=== PATIENT | female | born 1995 | race Caucasian/White ===

== ENCOUNTER → 2019-07-31 10:06 | Outpatient (BNVA) | payer BC, SELFPAY | PROVIDERS: Visit Provider Obstetrics & Gynecology | DX: Z32.01 Encounter for pregnancy test, result positive (principal) | CPT/HCPCS: 81025 ==

== ENCOUNTER 2019-08-29 07:06 | Outpatient (CLI) | payer BC, SELFPAY ==
--- NOTE | 2019-08-29 | US_ITS ---
WS: [id number] RENAL ULTRASOUND Urinary bladder ultrasound HISTORY: PKD COMPARISON: None available. TECHNIQUE: 2-D and color Doppler imaging of the kidney submitted. Right kidney: 11.8 cm x 5.3 cm x 5.3 cm. Kidneys top normal size. Several cysts are associated with the kidney. Largest from the inferior kidn ey measures 4.5 x 2.9 x 4.2 cm. There are multiple smaller cysts. No hydronephrosis. Left kidney: 11.8 cm x 4.5 cm x 5.4 cm. Normal size LEFT kidney with multiple small cysts. The largest cyst in the mid kidney measures 1.4 x 1.0 x 1.4 cm. Aorta: Normal. Urinary Bladder: Well-distended urinary bladder. No filling defects. Gravid uterus. US/US renal BI with bladder IMPRESSION: 1. Bilateral renal cysts. Size and number greatest on the RIGHT with the large st cyst measuring 4.5 x 2.9 x 4.2 cm. 2. Normal urinary bladder.
--- NOTE | 2019-08-29 | US_ITS ---
WS: [id number] EARLY OBSTETRICAL ULTRASOUND (<14 WEEKS). HISTORY: DATING US COMPARISON: None available. Single intrauterine gestational sac is identified. Cardiac activity at 99 BPM. [place]-rump length mattie ures 0.7 cm which corresponds to a gestation of 6w4d. Lobulated yolk sac is slightly enlarged. Heterogeneous material to the LEFT of the gestational sac. Favor this may be a bicornuate uterus with endometrial changes or a moderate-sized resolving subchorionic hemorrhage. No free fluid. Normal size ovaries with no mass. US/US OB <= 14 weeks fetus [id number] IMPRESSION: 1. Single intrauterine gestation of 6 weeks 4 days with an EDC of 04/19/2020. 2. Abnormal yolk sac and low cardiac activity. Continued close follow-up to ev aluate for appropriate growth. 3. Bicornuate uterus versus moderate-sized adjacent resolving subchorionic hem orrhage.
== END 2019-08-29 07:07 | disposition home or self-care (01) ==
LOC: RAD 07:06
PROVIDERS: Visit Provider Family Medicine
DX: Z34.91 Encounter for supervision of normal pregnancy, unspecified, first trimester (principal); Z3A.01 Less than 8 weeks gestation of pregnancy; Q61.3 Polycystic kidney, unspecified
CPT/HCPCS: 76770; 76801; 76857

== ENCOUNTER 2019-09-12 12:58 | Outpatient (CLI) | payer BC, SELFPAY ==
--- NOTE | 2019-09-12 | US_ITS ---
WS: [id number] EARLY OBSTETRICAL ULTRASOUND (<14 WEEKS). HISTORY: VAG BLEED COMPARISON: 08/29/2019 Transabdominal and transvaginal imaging is performed. Gestational sac measurement of 2.8 cm corresponds to gestation of 8 weeks and 1 day. There is a crown -rump length of 0.5 cm corresponding to a gestation of 6 weeks and 2 days. No cardiac activity is alan ntified. There has been no increase in size of the crown-rump length since the prior ultrasound. The cervix is closed. Both ovaries are normal size. Again noted is is thickened endometrium in the LEFT uterus which may be a bicornuate or septate. Notified Bright Burnham MD at 09/12/2019 2:19 PM. US/US OB <=14 wk fetus w transvag IMPRESSION: 1. No cardiac activity identified today. Suspect spontaneous embryonic demise. 2. Gestational sac size and embryo size are discordant. No increase in size of the embryo since 08/29/2019. 3. Consider follow-up MRI of the pelvis after the outcome of the has been resolved to evaluate for septate or bicornuate uterus.
== END 2019-09-12 12:59 | disposition home or self-care (01) ==
PROVIDERS: Visit Provider Family Medicine
DX: O20.9 Hemorrhage in early pregnancy, unspecified (principal)
CPT/HCPCS: 76801; 76817

== ENCOUNTER 2019-12-29 09:41 | Outpatient (CLI) | payer OTHER, SELFPAY ==
--- NOTE | 2019-12-29 09:47 | MR_ITS ---
WS: [id number] MRI PELVIS without CONTRAST. COMPARISON: None Multiplanar, multisequence imaging is performed without contrast. Examination for occult to evaluate for possible bicornuate uterus. No similar studies for comparison. Multiplanar, multisequence imaging is performed of the pelvis. The uterus is midline with very slight deviation to the LEFT. There is a single endometrium and a single cervix identified. Endometrium amy sures 10 mm. There is no intrauterine gestation. No septate or bicornuate uterus. There is no free fl uid in the pelvis. Both ovaries are identified and small caliber with small follicles. Negative urina ry bladder. MR/MR pelvis wo con* [id number] IMPRESSION: Normal uterus. There is no evidence for bicornuate or septate uterus.
== END 2019-12-29 09:42 | disposition home or self-care (01) ==
PROVIDERS: PCP Family Medicine; Visit Provider Family Medicine
DX: Q51.3 Bicornate uterus (principal)
CPT/HCPCS: 72195

== ENCOUNTER → 2021-06-24 14:33 | Outpatient (BNVA) | payer OTHER, SELFPAY | PROVIDERS: PCP Family Medicine; Visit Provider Family Medicine | DX: Z34.90 Encounter for supervision of normal pregnancy, unspecified, unspecified trimester (principal) | CPT/HCPCS: 82950 ==

== ENCOUNTER → 2021-06-30 13:30 | Outpatient (BNVA) | payer OTHER, SELFPAY | PROVIDERS: PCP Family Medicine; Visit Provider Family Medicine | DX: R73.09 Other abnormal glucose (principal) | CPT/HCPCS: 82951; 82952 ==

== ENCOUNTER → 2021-07-07 16:42 | Outpatient (BNVA) | payer OTHER, SELFPAY | PROVIDERS: PCP Family Medicine; Visit Provider Family Medicine | DX: Z34.00 Encounter for supervision of normal first pregnancy, unspecified trimester (principal) | CPT/HCPCS: 85025 ==

== ENCOUNTER 2021-07-12 13:25 | Outpatient (CLI) | payer OTHER, SELFPAY ==
[2021-07-12] VITALS (9 sets, daily range): BP systolic 100–119; BP diastolic 58–68; PULSE 62–111; RESP 16–17; TEMP 37.1; BMI 34.7
== END 2021-07-12 17:15 | disposition home or self-care (01) ==
LOC: OPOB 13:31 → OBGYN 13:34
PROVIDERS: PCP Family Medicine; Visit Provider Family Medicine
DX: O26.899 Other specified pregnancy related conditions, unspecified trimester (principal); Z3A.00 Weeks of gestation of pregnancy not specified; Z91.81 History of falling; M54.9 Dorsalgia, unspecified
CPT/HCPCS: 59025; 99211

== ENCOUNTER 2021-08-11 12:13 | Outpatient (CLI) | payer OTHER, SELFPAY ==
--- NOTE | 2021-08-11 12:28 | US_ITS ---
WS: [id number] BIOPHYSICAL PROFILE AND LIMITED OB. HISTORY: GESTATIONAL DIABETES COMPARISON: 04/18/2021 Presentation: Breech. Cervix: Closed, 4.9 cm in length. Placenta: Anterior and fundal. No previa or abruption. Grade: 1 HEART: FHR of 141BPM. measurements: BPD = 9.2 cm = 37w1d HC = 32.3 cm = 36w3d AC = 31.1 cm = 35w1d FL = 7.1 cm = 36w2d ÁLVARO: 5.2; 2.5 th % for age. Largest vertical pocket of amniotic fluid 3.6 cm. EFW: 2765g; 52nd %. AGA by ultrasound: 36w2d JESENIA by ultrasound: 09/06/2021 Measurements are internally concordant. Appropriate growth since the first trimester ultrasound. Biophysical profile: Parameters are as follows: Breathin Movement: 2 Tone: 2 Fluid volume: 2 US/US OB F/U w BPP wo NST IMPRESSION: 1. Biophysical profile score: 8/8. 2. Single intrauterine gestation of 36w2d and 09/06/2021. Appropriate growth s maddison the first trimester ultrasound. 3. Estimated weight at the 52nd percentile for age. 4. Oligohydramnios. Very little amniotic fluid is identified. 5. Breech. Patient is returning to Dr. Burnham's office at this time.
== END 2021-08-11 12:14 | disposition home or self-care (01) ==
LOC: RAD 12:14
PROVIDERS: PCP Family Medicine; Visit Provider Family Medicine
DX: O24.419 Gestational diabetes mellitus in pregnancy, unspecified control (principal); O41.03X0 Oligohydramnios, third trimester, not applicable or unspecified; Z3A.36 36 weeks gestation of pregnancy
CPT/HCPCS: 76816; 76819; 82570; 84156; 87081

== ENCOUNTER 2021-08-11 15:42 | Outpatient (CLI) | payer OTHER, SELFPAY ==
[2021-08-11] VITALS (9 sets, daily range): BP systolic 108–119; BP diastolic 62–75; PULSE 75–79; RESP 16; BMI 34.9
[2021-08-11 17:19] LABS: Actim Prom Negative
== END 2021-08-11 18:12 | disposition home or self-care (01) ==
LOC: OPOB 15:44 → OBGYN 15:45
PROVIDERS: PCP Family Medicine; Visit Provider Family Medicine
DX: O26.899 Other specified pregnancy related conditions, unspecified trimester (principal); Z3A.00 Weeks of gestation of pregnancy not specified; N89.8 Other specified noninflammatory disorders of vagina
CPT/HCPCS: 59025; 84112; 99211

== ENCOUNTER 2021-08-15 09:58 | Outpatient (CLI) | payer OTHER, SELFPAY ==
--- NOTE | 2021-08-15 10:05 | US_ITS ---
WS: [id number] BIOPHYSICAL PROFILE AND LIMITED OB. AMNIOTIC FLUID INDEX. HISTORY: GESTATIONAL DIABETES COMPARISON: 08/11/2021, 01/24/2021. Presentation: Breech. Cervix: Closed and normal length. Placenta: Fundal and anterior, no previa or abruption. Grade: 1 HEART: FHR of 144BPM. ÁLVARO: 6.2 cm; 2.5 th percentile for age. Largest vertical pocket of amniotic fluid 3.1 cm. Biophysical profile: Parameters are as follows: Breathin Movement: 2 Tone: 2 Fluid volume: 2 US/US OB F/U w BPP wo NST IMPRESSION: 1. Biophysical profile score: 8/8. 2. Oligohydramnios. Amniotic fluid index at the 2.5th percentile for age. 3. Breech. Notified Bright Burnham MD at 08/15/2021 11:32 AM. Message relayed to Berenice salgado without pass the message on to Dr. Burnham's nurse.
== END 2021-08-15 09:59 | disposition home or self-care (01) ==
LOC: RAD 09:58
PROVIDERS: PCP Family Medicine; Visit Provider Family Medicine
DX: O24.419 Gestational diabetes mellitus in pregnancy, unspecified control (principal); Z3A.00 Weeks of gestation of pregnancy not specified
CPT/HCPCS: 76816; 76819

== ENCOUNTER 2021-08-15 14:21 | Outpatient (CLI) | payer OTHER, SELFPAY ==
[2021-08-15 14:20] VITALS: BMI 35.6
[2021-08-15 14:30] VITALS: BP 126/71; PULSE 73
[2021-08-15 15:04] VITALS: TEMP 36.9
[2021-08-15 15:50] VITALS: BP 118/76; PULSE 68
[2021-08-15 15:59] VITALS: BP 118/76; PULSE 68; TEMP 36.9
== END 2021-08-15 16:05 | disposition home or self-care (01) ==
LOC: OPOB 14:21 → OBGYN 14:23
PROVIDERS: PCP Family Medicine; Visit Provider Family Medicine
DX: O24.419 Gestational diabetes mellitus in pregnancy, unspecified control (principal); Z3A.00 Weeks of gestation of pregnancy not specified; O41.00X0 Oligohydramnios, unspecified trimester, not applicable or unspecified
CPT/HCPCS: 59025; 99211

== ENCOUNTER 2021-08-18 10:10 | Outpatient (CLI) | payer OTHER, SELFPAY ==
[2021-08-18 10:21] VITALS: BP 121/77; PULSE 71; TEMP 35.9
[2021-08-18 10:23] VITALS: RESP 16
[2021-08-18 10:41] VITALS: BP 111/71; PULSE 68
[2021-08-18 10:55] VITALS: BP 111/71; PULSE 68
== END 2021-08-18 10:55 | disposition home or self-care (01) ==
LOC: OPOB 10:15 → OBGYN 10:17
PROVIDERS: PCP Family Medicine; Visit Provider Family Medicine
DX: O24.419 Gestational diabetes mellitus in pregnancy, unspecified control (principal); Z3A.00 Weeks of gestation of pregnancy not specified
CPT/HCPCS: 59025

== ENCOUNTER 2021-08-22 12:46 | Outpatient (CLI) | payer OTHER, SELFPAY ==
--- NOTE | 2021-08-22 13:10 | US_ITS ---
WS: [id number] BIOPHYSICAL PROFILE AMNIOTIC FLUID HISTORY: GESTATIONAL DIABETES COMPARISON: 08/15/2021 Cardiac activity: 147 bpm. Cervix: closed. Position: Vertex. Placenta: Fundal and anterior. No previa or abruption. Placenta grade: 1 Parameters are as follows: Breathin Movement: 2 Tone: 2 Fluid volume: 2 Amniotic fluid index: 4.3 cm; largest vertical pocket is 2.0 cm in the quadrants. There is an additio nal fluid pockets in the midline measuring 2.9 cm in depth. US/US OB BPP wo NST [id number] IMPRESSION: 1. Biophysical profile score: 8/8. 2. Oligohydramnios. Amniotic fluid index at 4.3 cm. Oligohydramnios was previou sly reported on 08/11/2021 and 08/15/2021.
== END 2021-08-22 12:47 | disposition home or self-care (01) ==
PROVIDERS: PCP Family Medicine; Visit Provider Family Medicine
DX: O24.419 Gestational diabetes mellitus in pregnancy, unspecified control (principal); O41.00X0 Oligohydramnios, unspecified trimester, not applicable or unspecified
CPT/HCPCS: 76819

== ENCOUNTER 2021-08-22 16:45 | Inpatient (IN) | payer OTHER, SELFPAY ==
[2021-08-22] VITALS (18 sets, daily range): BP systolic 100–142; BP diastolic 55–84; PULSE 51–93; RESP 17; TEMP 36.2–36.9; BMI 34.7
[2021-08-22] MEDS: miSOPROStol 100 mcg tablet 25 MCG VAGINAL ×2 (17:20→22:24)
[2021-08-22 17:41] LABS: Basophils % 0.1 %; Eosinophils % 0.1 %; Hematocrit 31.2 % (37.0-47.0); Lymphocytes # 0.9 10^3/uL (0.8-4.8); Lymphocytes % 12.8 %; Mean Corpuscular HGB Conc 35.3 g/dL (30.0-36.0); Mean Corpuscular Hemoglobin 31.9 pg (28.0-34.0); Mean Corpuscular Volume 90.4 fl (81-99); Mean Platelet Volume 12.5 fL (7.4-10.4); Monocytes # 0.4 10^3/uL (0.2-0.9); Monocytes % 5.8 %; Neutrophils # 5.41 10^3/uL (1.8-7.7); Neutrophils % 80.9 %; Nucleated Red Blood Cells % 0 %; Platelet Count 140 10^3/cmm (130-400); Red Blood Count 3.45 10^6/uL (4.1-5.3); Red Cell Distribution Width 13.4 % (12.1-15.1); White Blood Count 6.7 10^3/uL (4.0-10.0)
[2021-08-22 18:28] LABS: Glucose Point of Care 79 mg/dL (70-110)
--- NOTE | 2021-08-22 22:02 | PM.HP ---
Providers/Chief Complaint Admitting Physician: Bright Burnham MD Primary Care Provider: Sandip Reyes DO Chief Complaint: Induction History of Present Illness Lisa is a 26 y/o at 38.0 weeks by 8 wk US inconsistent with LMP. Preg is c/b anxiety/depression off of Citalopram, Some days smoker, rubella non-immune, low progesterone on supplementation in 1st TM, 2nd TM spotting, gDM - insulin, mild anemia, oligohydramnios with ÁLVARO of 4.2. The patient presented to clinic after having an ultrasound done secondary to gestational diabetes. She had borderline oligohydramnios on the 2 prior ultrasounds, and the fluid level dropped to 4.2 today. Because of this, risks and benefits of proceeding with induction of labor versus waiting were discussed and it was recommended that she proceed with induction of labor. The patient and her are in agreement. The patient has not had any leakage of fluid, vaginal bleeding, nausea, vomiting, diarrhea, constipation, fevers, chest pains, cough. The patient's blood sugar levels have been well controlled recently. She was on 10 units of Levemir and her glucose levels have been in the upper 70s to low 100 range. She has controlled her glucose well with dietary changes. The baby had been in the breech position, however flipped on its own to the vertex position. Medications/Allergies Home Medications Medication Instructions Recorded Confirmed Last Taken Type ferrous sulfate 325 mg (65 mg 325 mg PO DAILY 07/12/21 08/22/21 08/14/21 22:00 History iron) tablet vits no.124-ferrous fum 1 tab PO DAILY 07/12/21 08/22/21 08/14/21 22:00 History 27 mg iron-folic acid 800 mcg tablet ( Vitamin) calcium phosphate,dibasic 77 tab PO 08/15/21 08/22/21 08/14/21 22:00 History mg-vitamin D3 400 unit tablet cetirizine 10 mg tablet (Zyrtec) 10 mg PO DAILY 08/15/21 08/22/21 08/14/21 22:00 History insulin detemir U-100 100 unit/mL 10 unit SUBCUT DAILY 08/15/21 08/22/21 08/15/21 12:15 History (3 mL) subcutaneous pen Allergies Allergy/AdvReac Type Severity Reaction Status Date / Time Penicillins Allergy rash Verified 08/03/21 08:19 itching as a child PFSH Acute PFSH: Surgical History (Updated 08/22/21 @ 22:08 by Bright Burnham MD) [place] teeth removed Family History (Updated 08/22/21 @ 22:08 by Bright Burnham MD) Mother Polycystic kidney disease Social History Smoking and tobacco status: former smoker Second hand smoke exposure: No Smoking risk assessment/counseling performed?: No Alcohol intake: never Female Reproductive History: : 2 Vitals/I&O/Wt Last Vital Signs Temp 97.2 F L 08/22/21 16:58 Pulse 71 08/22/21 20:46 Resp 17 08/22/21 16:58 BP 138/79 08/22/21 20:46 Weight last 48 hrs Weight 196 lb Physical Exam Narrative: General: Alert and oriented x3 Eyes: Pupils equal round and reactive to light and accommodation Mouth: Mucous membranes moist, pharynx non-erythematous Cardiac: Regular rate and rhythm without murmurs Lungs: Clear to auscultation bilaterally without wheezes, crackles or rhonchi Abdomen: Soft, non-tender, fundus small for gestational age Extremities: Trace edema in the bilateral lower extremities Data : 08/22/21 17:00 A&P Assessment and plan (1) Intrauterine : The patient has a low ÁLVARO and needs to be induced. The underlying cause of this could be related to gestational diabetes, however she does have polycystic kidneys and this could be related as well. We will need to consider renal ultrasound of the infant after delivery to further evaluate. Initial anatomy ultrasound was normal. The patient has been started on Cytotec due to being closed, thick and high. heart tones are currently in the mid 140s with moderate variability good accelerations with a category 1 tracing. She is having contractions every 2 to 4 minutes after the first dose of Cytotec. She is not feeling them. We will proceed with continued induction of labor and go from there. All questions were answered. The patient and her are in agreement with current plan of care. Status: Acute (2) Oligohydramnios: Status: Acute (3) Gestational diabetes: We will check blood sugar levels every 4 hours initially and once she is in labor every 2 hours. Treat with insulin if needed. Status: Acute Attestations Medical Necessity Statement*: The patient will be here for greater than 2 midnights due to routine intrapartum and management of labor and delivery. Coding Level of Care Code Acute [employer] for [employer] Diagnoses Intrauterine Z34.90 Oligohydramnios O41.00X0 Gestational diabetes O24.419
[2021-08-22 22:36] LABS: Glucose Point of Care 80 mg/dL (70-110)
[2021-08-23] VITALS (33 sets, daily range): BP systolic 99–147; BP diastolic 57–87; PULSE 48–67; RESP 16–17; TEMP 36.7
[2021-08-23] MEDS: miSOPROStol 100 mcg tablet 25 MCG VAGINAL (02:29)
[2021-08-23 02:51] LABS: Glucose Point of Care 76 mg/dL (70-110)
[2021-08-23 06:31] LABS: Glucose Point of Care 86 mg/dL (70-110)
[2021-08-23] MEDS: acetaminophen 325 mg Tablet 650 MG PO (08:50)
[2021-08-23] MEDS: hyDROXYzine 25 mg Capsule PO (08:50)
[2021-08-23 10:34] LABS: Glucose Point of Care 98 mg/dL (70-110)
[2021-08-23 14:27] LABS: Glucose Point of Care 82 mg/dL (70-110)
[2021-08-23] MEDS: sodium chloride 0.9% 1,000 ML 125 ML IV (18:30)
[2021-08-23] MEDS: oxytocin 30 UNIT/500 ML BAG IV (18:30)
[2021-08-23 18:48] LABS: Glucose Point of Care 126 mg/dL (70-110)
[2021-08-23] MEDS: insulin lispro 100 unit/1 mL SUBCUT (19:18)
[2021-08-23 20:28] LABS: Glucose Point of Care 85 mg/dL (70-110)
--- NOTE | 2021-08-23 21:32 | P.PN_ITS ---
Subjective Subjective: The patient is feeling well. She has been changed to 6 cm. This morning she had changed to 1 cm after 3 doses of Cytotec. She continued to be thick and high, so a Mayes bulb was placed by myself. She tolerated this well. She has not had any leakage of fluid or vaginal bleeding. Vitals/I&O/Wt Last Vital Signs Temp 98.0 F 08/23/21 18:45 Pulse 56 L 08/23/21 21:11 Resp 16 08/23/21 18:12 BP 139/87 08/23/21 21:11 08/23/21 08/23/21 08/23/21 06:59 14:59 22:59 Intake Total 303.533 / 303.533 Balance 303.533 / 303.533 Weight last 48 hrs Weight 196 lb Physical Exam Narrative: General: Alert and oriented x3 Cardiac: Regular rate and rhythm without murmurs Lungs: Clear to auscultation bilaterally without wheezes, crackles or rhonchi Abdomen: Soft, non-tender, fundus consistent with gestational age Extremities: Trace edema in the bilateral lower extremities Data : 08/22/21 17:00 A&P Assessment and plan (1) Gestational diabetes: The patient's blood sugar has been well controlled. She had 1 reading that was over 120 and received 1 unit of insulin. Other than this it has been in a normal range. We will continue to watch for hypoglycemia and hyperglycemia. Status: Acute (2) Intrauterine : The patient is doing well overall at this time. We will continue with routine intrapartum management of labor and delivery. heart tones are category 1. Patient is currently on 8 units of Pitocin. All questions were answered. Continue with current plan of care. Status: Acute (3) Oligohydramnios: Status: Acute Attestations Medical Necessity Statement*: The patient will be here for greater than 2 midnights due to routine intrapartum and management of labor and delivery. 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
[2021-08-23 22:32] LABS: Glucose Point of Care 70 mg/dL (70-110)
[2021-08-24] VITALS (48 sets, daily range): BP systolic 97–154; BP diastolic 54–88; PULSE 53–90; RESP 16; TEMP 36.6; O2SAT 95–100
[2021-08-24 00:27] LABS: Glucose Point of Care 73 mg/dL (70-110)
[2021-08-24] MEDS: lactated ringers 1,000 ML 999 ML IV (01:30)
--- NOTE | 2021-08-24 01:54 | P.ANESASSM_ITS ---
Pre-Anesthetic Assessment Height/Weight: Height 1.6 m Weight 88.904 kg Temp Pulse Resp BP 98.0 F 63 16 127/78 08/23/21 18:45 08/24/21 01:10 08/23/21 18:12 08/24/21 01:10 Preop Diagnosis: labor epidural Familial anesthetic complications: none Was Beta Alexis taken within 24 hours: N/A Was Clonidine taken within 24 hours: N/A Last Intake: 23:30 Social No alcohol and No tobacco Exam alert, oriented x 3, clear to auscultation bilaterally and regular rate & rhythm Airway Submandibular: within normal limits Cervical ROM: within normal limits Mallampati: Class I Dentition: full Pulmonary None reported CV/HEM None reported PKD Hepatic None reported GI None reported Metabolic Diabetes Mellitus (gestational bs avg 70-100) Musc/skel Lower Back Pain (with ) Neuropsych Depression Anesthetic Plan ASA status: 2 Anesthesia: Regional (specify below) Risk of > 500 ml blood loss (7ml/kg in children): No Medications/Allergies Home Medications Medication Instructions Recorded Confirmed Last Taken Type ferrous sulfate 325 mg (65 mg 325 mg PO DAILY 07/12/21 08/22/21 08/14/21 22:00 History iron) tablet vits no.124-ferrous fum 1 tab PO DAILY 07/12/21 08/22/21 08/14/21 22:00 History 27 mg iron-folic acid 800 mcg tablet ( Vitamin) calcium phosphate,dibasic 77 tab PO 08/15/21 08/22/21 08/14/21 22:00 History mg-vitamin D3 400 unit tablet cetirizine 10 mg tablet (Zyrtec) 10 mg PO DAILY 08/15/21 08/22/21 08/14/21 22:00 History insulin detemir U-100 100 unit/mL 10 unit SUBCUT DAILY 08/15/21 08/22/21 08/15/21 12:15 History (3 mL) subcutaneous pen Allergies Allergy/AdvReac Type Severity Reaction Status Date / Time Penicillins Allergy rash Verified 08/03/21 08:19 itching as a child Current Medications Generic Name Dose Route Start Last Admin Trade Name Freq PRN Reason Stop Dose Admin Sodium Chloride 1,000 mls @ 125 mls/hr 08/22/21 17:00 08/23/21 18:30 Sodium Chloride 0.9% IV 125 mls/hr .Q8H ELY Administration Oxytocin 30 unit in 500 mls @ 2 mls/hr 08/23/21 18:15 08/23/21 19:38 Pitocin IV 6 milliunit/min .Q24H ELY 6 mls/hr Titration Protocol 2 MILLIUNIT/MIN PFSH Anesthesia Surgical History (Updated 08/22/21 @ 22:08 by Bright Burnham MD) [place] teeth removed Family History (Updated 08/22/21 @ 22:08 by Bright Burnham MD) Mother Polycystic kidney disease Social History Smoking and tobacco status: former smoker Second hand smoke exposure: No Smoking risk assessment/counseling performed?: No Alcohol intake: never Female Reproductive History : 2 Data Anesthesia : 08/22/21 17:00 Short CBC 08/22/21 Range/Units 17:00 WBC 6.7 (4.0-10.0) 10^3/uL Hgb 11.0 L (11.5-15.3) g/dL Hct 31.2 L (37.0-47.0) % MCV 90.4 (81-99) fl Plt Count 140 (130-400) 10^3/cmm Neut % (Auto) 80.9 % Neut # (Auto) 5.41 (1.8-7.7) 10^3/uL Cardiac Studies: No Data to Display
--- NOTE | 2021-08-24 02:29 | ANES.PROC ---
Anesthesia Procedures Procedure/Date: 08/24/21 Epidural: Time Out Performed: Yes Consents Signed: Procedure Consent and NPO Consent Consent: requested by attending/covering physician, from patient, risks and benefits reviewed and patient agrees to proceed Lumbar Level: L3-L4 Epidural position: sitting Epidural procedure: sterile prep of area (betadine), 1% lidocaine to numb the area (3ml), 18 g needle, negative for paresthesia passed, neg for paresthesia, test dose given (2% lidocaine PF with epi 1:200,000 PF 3ml neg and 2ml given), 0.2% Ropivacaine bolus ml (5ml), placed PCEA, no systemic response, sterile dressing applied, L.U.D. no apparent complications and 0.2% Ropiavacaine @ mls/hr (13ml/hr)
[2021-08-24 02:46] LABS: Glucose Point of Care 100 mg/dL (70-110)
[2021-08-24] MEDS: ondansetron 2 mg/ML SDV 2 mL 4 MG IVP (04:45)
[2021-08-24 05:45] LABS: Glucose Point of Care 92 mg/dL (70-110)
--- NOTE | 2021-08-24 07:20 | P.PCNOB_ITS ---
Delivery Note: Date of delivery: August 24, 2021 Pre-delivery diagnoses: 1. Intrauterine at 38.2 weeks gestation 2. Anxiety off of medication 3. Smoker during first trimester 4. Rubella nonimmune 5. Low progesterone on supplementation first trimester 6. Second trimester bleeding 7. Gestational diabetes on insulin 8. Mild anemia 9. Oligohydramnios with ÁLVARO of 4.2 Post-delivery diagnoses: 1. Intrauterine status post spontaneous vaginal delivery at 38.2 weeks gestation 2. Anxiety off of medication 3. Smoker during first trimester 4. Rubella nonimmune 5. Low progesterone on supplementation first trimester 6. Second trimester bleeding 7. Gestational diabetes on insulin 8. Mild anemia 9. Oligohydramnios with ÁLVARO of 4.2 10. Delivery of healthy female weighing 6 pounds 2 ounces with Apgars of 8 and 9 Procedure: Spontaneous vaginal delivery Delivering Physician: Bright Burnham MD Estimated blood loss (mL): 200 Findings: 1. Delivery of healthy infant female weighing 6 pounds 2 ounces with Apgars of 8 and 9 2. Intact placenta with central umbilical cord insertion site and three-vessel cord. Pre-Delivery Course: Lisa is a 26 y/o G2 NOW P1 status post spontaneous vaginal delivery at 38.2 weeks by 8 wk US inconsistent with LMP. Preg is c/b anxiety/depression off of Citalopram, Some days smoker, rubella non-immune, low progesterone on supplementation in 1st TM, 2nd TM spotting, gDM - insulin, mild anemia, oligohydramnios with ÁLVARO of 4.2. The patient presented to clinic after having an ultrasound done secondary to gestational diabetes.? She had borderline oligohydramnios on the 2 prior ultrasounds, and the amniotic fluid index dropped to 4.2 on 08/22/2021. Because of this, risks and benefits of proceeding with induction of labor versus waiting were discussed and it was recommended that she proceed with induction of labor.? The patient and her were in agreement. The patient was closed/thick/high upon admission and was started on Cytotec. After 3 doses, her cervix dilated to 1 cm and she continued to be thick and high. Because her Sears score was low, it was felt that Pitocin would likely not be the best option, so a Mayes bulb was placed. It was a difficult placement, however successful. This was placed on the morning of 08/23/2021. The Mayes bulb came out on the afternoon of 08/23/2021 and the patient was 5 cm dilated at that time. She was started on IV Pitocin and she made gradual change and SROM took place at 1:15 AM on 08/24/2021. She was complete by 5:42 AM on 08/24/2021. Delivery: The patient began pushing at 5:51 AM on 08/24/2021. The patient pushed well and the infant delivered in the OA position at 6:28 AM on 08/24/2021. The right shoulder was the anterior shoulder and it delivered with ease. The rest of the delivered without complication. The 's mouth and nose were bulb suctioned by myself. The was crying immediately upon delivery. Clear fluid was noted. The was placed on the mother's chest where the nurses were waiting to care for her. The umbilical cord was clamped by myself after approximately 1 minute and cut by the infant's father. Cord blood was obtained. The cord was then drained of blood and traction was placed on umbilical cord. The uterus was massaged and the placenta delivered without complication at 6:33 AM on 08/24/2021. The placenta was noted to be intact with a central umbilical cord insertion site. The cervix was inspected and no lacerations were noted. The vaginal wall was inspected and a second-degree left labial wall tear as well as a right upper labial wall tear were noted. These were both repaired using 3-0 Vicryl in a running fashion. The patient did not n eed lidocaine as her epidural was providing adequate anesthesia. Rectal exam was done and no sutures were noted in the rectum. Currently both the mother and infant are doing well. History History History 2 Term 1 Miscarriages/Ectopic 1 0 Living Children 1 A&P Assessment and plan (1) Intrauterine : Status: Acute (2) Oligohydramnios: Status: Acute (3) Gestational diabetes: Status: Acute (4) Polycystic kidney: Status: Acute (5) Spontaneous vaginal delivery: Status: Acute (6) Laceration of vaginal wall or sulcus without perineal laceration during delivery: Status: Acute Coding Level of Care Code Acute Surveyor Instrument Assistant for [facility] Diagnoses Intrauterine Z34.90 Oligohydramnios O41.00X0 Gestational diabetes O24.419 Polycystic kidney Q61.3 Spontaneous vaginal delivery O80 Laceration of vaginal wall or sulcus without perineal laceration during delivery O71.4
[2021-08-24] MEDS: lanolin oint 7 gm 1 APPLIC TOPICAL (16:56)
[2021-08-24] MEDS: docusate sodium 100 mg Capsule PO (16:57)
[2021-08-24] MEDS: benzocaine-menthol 78 gm Canister 1 SPRAY TOPICAL (16:57)
[2021-08-24] MEDS: ibuprofen 800 mg tablet PO (16:57)
[2021-08-24 19:02] LABS: Hematocrit 30.9 % (37.0-47.0); Hemoglobin 10.7 g/dL (11.5-15.3); Mean Corpuscular HGB Conc 34.6 g/dL (30.0-36.0); Mean Corpuscular Volume 92.5 fl (81-99); Mean Platelet Volume 12.1 fL (7.4-10.4); Platelet Count 137 10^3/cmm (130-400); Red Blood Count 3.34 10^6/uL (4.1-5.3); Red Cell Distribution Width 13.5 % (12.1-15.1); White Blood Count 12.1 10^3/uL (4.0-10.0)
[2021-08-25] MEDS: ibuprofen 800 mg tablet PO ×2 (00:06→11:11)
[2021-08-25 03:51] VITALS: BP 121/82; PULSE 60; O2SAT 96
[2021-08-25] MEDS: measles,mumps,rubella pf Vial (w/diluent) 0.5 ML SUBCUT (11:10)
[2021-08-25] MEDS: prenatal vitamin Capsule 1 CAP PO (11:11)
[2021-08-25] MEDS: docusate sodium 100 mg Capsule PO (11:11)
[2021-08-25 11:52] VITALS: BP 123/83; PULSE 86; RESP 16; TEMP 36.6; O2SAT 98
--- NOTE | 2021-08-25 17:17 | ANE.PACU2 ---
Inpatient post-anesthesia follow up: Airway intact: Yes Vital signs: Temperature 97.8 F Pulse Rate 86 Respiratory Rate 16 Blood Pressure 123/83 Pulse Oximetry 98 Oxygen Delivery Me thod Room Air Oxygen Flow Rate Fraction of Inspir ed Oxygen Hydration adequate: Yes Nausea and vomiting: No Pain level: 2 Mental status: Baseline
--- NOTE | 2021-08-31 11:17 | P.DS_ITS ---
Discharge Providers Date of Admission: 08/22/21 16:45 Date of Discharge: August 25, 2021 Attending Provider at Admission: Bright Burnham MD Attending Provider at Discharge: Bright Burnham MD Primary Care Provider: Sandip Reyes DO Diagnoses at Discharge Discharge Diagnosis (1) Intrauterine : Status: Resolved (2) Oligohydramnios: Status: Resolved (3) Gestational diabetes: Status: Resolved (4) Polycystic kidney: Status: Acute (5) Spontaneous vaginal delivery: Status: Resolved (6) Laceration of vaginal wall or sulcus without perineal laceration during delivery: Status: Resolved Other Information Additional DC diagnoses/information: 1. Intrauterine status post spontaneous vaginal delivery at 38.2 weeks gestation 2.? Anxiety off of medication 3.? Smoker during first trimester 4.? Rubella nonimmune 5.? Low progesterone on supplementation first trimester 6.? Second trimester bleeding 7.? Gestational diabetes on insulin 8.? Mild anemia 9.? Oligohydramnios with ÁLVARO of 4.2 10.? Delivery of healthy infant female weighing 6 pounds 2 ounces with Apgars of 8 and 9? Reason for Visit Reason for Visit: Induction Brief History: Lisa is a 26 y/o G2 NOW P1 status post spontaneous vaginal delivery at 38.2 weeks by 8 wk US inconsistent with LMP. Preg is c/b anxiety/depression off of Citalopram, Some days smoker, rubella non-immune, low progesterone on supplementation in 1st TM, 2nd TM spotting, gDM - insulin, mild anemia, oligohydramnios with ÁLVARO of 4.2. The patient presented to clinic after having an ultrasound done secondary to gestational diabetes.? She had borderline oligohydramnios on the 2 prior ultrasounds, and the amniotic fluid index dropped to 4.2 on 08/22/2021.? Because of this, risks and benefits of proceeding with induction of labor versus waiting were discussed and it was recommended that she proceed with induction of labor.? The patient and her were in agreement. The patient was closed/thick/high upon admission and was started on Cytotec.? After 3 doses, her cervix dilated to 1 cm and she continued to be thick and high.? Because her Sears score was low, it was felt that Pitocin would likely not be the best option, so a Mayes bulb was placed.? It was a difficult placement, however successful.? This was placed on the morning of 08/23/2021.? The Mayes bulb came out on the afternoon of 08/23/2021 and the patient was 5 cm dilated at that time.? She was started on IV Pitocin and she made gradual change and SROM took place at 1:15 AM on 08/24/2021.? She was complete by 5:42 AM on 08/24/2021. Hospital Course Hospital Course The patient began pushing at 5:51 AM on 08/24/2021.? The patient pushed well and the delivered in the OA position at 6:28 AM on 08/24/2021.? The right shoulder was the anterior shoulder and it delivered with ease.? The rest of the infant delivered without complication.? The 's mouth and nose were bulb suctioned by myself.? The was crying immediately upon delivery.? Clear fluid was noted.? The infant was placed on the mother's chest where the nurses were waiting to care for her.? The umbilical cord was clamped by myself after approximately 1 minute and cut by the 's father.? Cord blood was obtained.? The cord was then drained of blood and traction was placed on umbilical cord.? The uterus was massaged and the placenta delivered without complication at 6:33 AM on 08/24/2021.? The placenta was noted to be intact with a central umbilical cord insertion site.? The cervix was inspected and no lacerations were noted.? The vaginal wall was inspected and a second-degree left labial wall tear as well as a right upper labial wall tear were noted.? These were both repaired using 3-0 Vicryl in a running fashion.? the patient has done well without complications. She is currently ambulating, voiding, passing gas and tolerating food by mouth. Her bleeding is decreasing well. Her pain is well controlled. We will plan to discharge home today and follow-up in clinic at 6 weeks or sooner if needed. All questions were answered. The patient and her are in agreement with the current plan of care. Routine discharge instructions were given. Physical Exam Narrative: General: Alert and oriented x3 Cardiac: Regular rate and rhythm without murmurs Lungs: Clear to auscultation bilaterally without wheezes, crackles or rhonchi Abdomen: Soft, mild tenderness over uterus. The uterus is firm and 2 cm below the umbilicus. Extremities: Trace edema in the bilateral lower extremities Urinary Catheter Management: Mayes: Cath Placed During This Visit: yes, but has since been removed by the nurse Reason for Continuing Indwelling Catheter: Other Urinary Catheter Date of Insertion: 08/24/21 Urinary Catheter Time of Insertion: 02:52 Date Urinary Catheter Removed: 08/24/21 Time Urinary Catheter Discontinued: 05:47 Discharge Data Studies Completed and Pending Laboratory Results WBC 12.1 10^3/uL (4.0-10.0) H 08/24/21 18:40 RBC 3.34 10^6/uL (4.1-5.3) L 08/24/21 18:40 Hgb 10.7 g/dL (11.5-15.3) L 08/24/21 18:40 Hct 30.9 % (37.0-47.0) L 08/24/21 18:40 MCV 92.5 fl (81-99) 08/24/21 18:40 MCH 32.0 pg (28.0-34.0) 08/24/21 18:40 MCHC 34.6 g/dL (30.0-36.0) 08/24/21 18:40 RDW 13.5 % (12.1-15.1) 08/24/21 18:40 Plt Count 137 10^3/cmm (130-400) 08/24/21 18:40 MPV 12.1 fL (7.4-10.4) H 08/24/21 18:40 Neut % (Auto) 80.9 % 08/22/21 17:00 Lymph % (Auto) 12.8 % 08/22/21 17:00 [place] % (Auto) 5.8 % 08/22/21 17:00 Eos % (Auto) 0.1 % 08/22/21 17:00 Baso % (Auto) 0.1 % 08/22/21 17:00 Neut # (Auto) 5.41 10^3/uL (1.8-7.7) 08/22/21 17:00 Lymph # (Auto) 0.9 10^3/uL (0.8-4.8) 08/22/21 17:00 [place] # (Auto) 0.4 10^3/uL (0.2-0.9) 08/22/21 17:00 Eos # (Auto) 0.0 10^3/uL (0.0-0.8) 08/22/21 17:00 Baso # (Auto) 0.0 10^3/uL (0.0-0.1) 08/22/21 17:00 Nucleated RBC % (auto) 0 % 08/22/21 17:00 Nucleated RBCs # 0.0 /100WBC 08/22/21 17:00 POC Glucose 92 mg/dL (70-110) 08/24/21 05:06 Vitals Last Vital Signs Temp 97.8 F 08/25/21 11:52 Pulse 86 08/25/21 11:52 Resp 16 08/25/21 11:52 BP 123/83 08/25/21 11:52 Pulse Ox 98 08/25/21 11:52 O2 Del Method 08/25/21 03:51 Discharge Plan Discharge Patient Disposition: Home Condition: Good Prescriptions: New ibuprofen 600 mg tablet 600 mg PO Q8H PRN (Reason: pain) Qty: 30 0RF Continued ferrous sulfate 325 mg (65 mg iron) Tablet 325 mg PO DAILY Vitamin 27 mg iron- 800 mcg Tablet 1 tab PO DAILY Zyrtec 10 mg Tablet 10 mg PO DAILY calcium phos,dibas-vitamin D3 77-400 mg-unit Tablet PO Discontinued Levemir Flexpen 100 unit/mL (3 mL) Insulin Pen 10 unit SUBCUT DAILY Discharge Orders: Discharge Order (Routine); Ordered 08/25/21 Ordered By: Bright Burnham Referrals: Bright Burnham MD [Physician] - 10/06/21 10:00 am Discharge Diet: Regular Discharge Activity: Increase activity as tolerated Patient Instructions: Depression (DC), Bleeding (DC), Preeclampsia and Eclampsia After Delivery (GEN), OB Discharge Report, OB Food/Drug Interaction Guide, Opioid Safety, OB [facility], OB Vaginal Deliveries, Abnormal Bleeding Activity Restrictions/Additional Instructions: Nothing per vagina for 6 weeks. If having problems prior to her 6-week appointment, please call for a sooner appointment. Discharge Attestations Time Spent in Discharge Care*: greater than 30 min Quality Metrics Clinical Quality Measures [ No reported AMI, CVA or VTE this stay] Coding Level of Care Code Acute Chg FW DC note Diagnoses Intrauterine Z34.90 Oligohydramnios O41.00X0 Gestational diabetes O24.419 Polycystic kidney Q61.3 Spontaneous vaginal delivery O80 Laceration of vaginal wall or sulcus without perineal laceration during delivery O71.4
== END 2021-08-25 12:00 | disposition home or self-care (01) | DRG 806 ==
LOC: OPOB 16:45 → OBGYN 16:46 → OPOB 16:49 → OBGYN 16:51
PROVIDERS: Admitting Provider Family Medicine; PCP Family Medicine; Visit Provider Family Medicine
DX: O41.03X0 Oligohydramnios, third trimester, not applicable or unspecified (principal); O71.4 Obstetric high vaginal laceration alone; Z37.0 Single live birth; Q61.3 Polycystic kidney, unspecified; O24.424 Gestational diabetes mellitus in childbirth, insulin controlled; O99.344 Other mental disorders complicating childbirth; F41.9 Anxiety disorder, unspecified; F32.A Depression, unspecified; O99.02 Anemia complicating childbirth; D64.9 Anemia, unspecified; Z3A.38 38 weeks gestation of pregnancy; Z28.39 Other underimmunization status; Z23 Encounter for immunization; Z79.4 Long term (current) use of insulin; Z87.891 Personal history of nicotine dependence
CPT/HCPCS: 36415; 36416; 51702; 59409; 82962; 85025; 85027; 90707; 96372; J1815; J2405; J2795; J7030

== ENCOUNTER → 2021-10-06 12:17 | Outpatient (BNVA) | payer OTHER, SELFPAY | PROVIDERS: PCP Family Medicine; Visit Provider Family Medicine | DX: O24.419 Gestational diabetes mellitus in pregnancy, unspecified control (principal); R21 Rash and other nonspecific skin eruption | CPT/HCPCS: 82951 ==

== ENCOUNTER → 2021-12-12 15:52 | Outpatient (BNVA) | payer OTHER, SELFPAY | PROVIDERS: PCP Family Medicine; Visit Provider Nurse Practitioner Family | DX: J02.9 Acute pharyngitis, unspecified (principal) | CPT/HCPCS: 87880 ==

== ENCOUNTER → 2021-12-12 15:52 | Outpatient (BNVA) | payer OTHER, SELFPAY | PROVIDERS: PCP Family Medicine; Visit Provider Nurse Practitioner Family | DX: J02.9 Acute pharyngitis, unspecified (principal) | CPT/HCPCS: 87804 ==

== ENCOUNTER → 2022-09-14 15:41 | Outpatient (BNVA) | payer OTHER, SELFPAY | PROVIDERS: PCP Family Medicine; Visit Provider Family Medicine | DX: Q61.3 Polycystic kidney, unspecified (principal) | CPT/HCPCS: 80048; 82570; 84156 ==